=== PATIENT | female | born 1975 | race Caucasian/White ===

== ENCOUNTER 2017-05-19 08:11 | Emergency (ER) ==
[2017-05-19 08:27] VITALS: BP 119/82; TEMP 98.6; BMI 36.6
[2017-05-19] MEDS ORDERED: SODIUM CHLORIDE 1,000 ML IV STA ×2 (09:21→13:36)
[2017-05-19] MEDS ORDERED: ZOFRAN 4 MG/2 ML IVP PRN ×2 (09:23→13:39)
[2017-05-19] MEDS ORDERED: PEPCID IVP STA (09:25)
--- NOTE | 2017-05-19 09:28 | ED.PDOC ---
General ED Provider: Dr. RUBIA MORALES Chief Complaint: Nausea/Vomiting Stated Complaint: Nausea-Vomiting and Diarrhea. Onset Yesterday evening.State her 2 children has been ill with flu symptoms. Has had multiple episodes of vomiting(6-7) along with watery diarrhea. Unable to keep liquids down Time Seen by Physician: 08:25 Mode of Arrival: Walk-In Information Source: Patient Exam Limitations: No limitations Primary Care Provider: RUBIA BATISTA Nursing and Triage Documentation Reviewed and Agree: Yes Reviewed sepsis parameters & appropriate labs ordered?: Yes System Inflammatory Response Syndrome: Not Applicable Sepsis Protocol: For patient's 13 years and over: Temp is 96.8 and below OR 101 and greater Pulse >90 BPM Resp >20/minute Acutely Altered Mental Status Are patient's symptoms suggestive of a new infection, such as: -Pneumonia -Skin, Soft Tissue -Endocarditis -UTI -Bone, Joint Infection -Implantable Device -Acute Abdominal Infection -Wound Infection -Meningitis -Blood Stream Catheter Infection -Unknown System Inflammatory Response Syndrome: Not Applicable GI Complaint Exam - Vomiting/Diarrhea Complaint/Exam Symptoms Are: Still present Initial Severity: Moderate Current Severity: Moderate Character of Vomiting: Reports: Bilious Character of Diarrhea: Reports: Watery Aggravating: Reports: Liquids Alleviating: Reports: None Associated Signs and Symptoms: Reports: Abdominal pain Review of Systems - Review Of Systems Constitutional: Reports: Weakness, Loss of appetite. Denies: Chills Eyes: Reports: No symptoms Ears, Nose, Mouth, Throat: Reports: No symptoms Respiratory: Reports: No symptoms Cardiac: Reports: No symptoms GI: Reports: Abdominal pain, Diarrhea, Nausea, Poor appetite, Poor fluid intake , Vomiting. Denies: Rectal bleeding : Reports: No symptoms Musculoskeletal: Reports: No symptoms Skin: Reports: No symptoms Neurological: Reports: No symptoms Endocrine: Reports: No symptoms Hematologic/Lymphatic: Reports: No symptoms All Other Systems: Reviewed and Negative Past Medical History - Past Medical History Previously Healthy: No Endocrine: Reports: None Cardiovascular: Reports: None Respiratory: Reports: None Hematological: Reports: None Gastrointestinal: Reports: Other (Gastric by pass) Genitourinary: Reports: None Neuro/Psych: Reports: Depression, Other (stress) Musculoskeletal: Reports: None Cancer: Reports: None Last Menstrual Period: now - Surgical History General Surgical History: Reports: Gastric Bypass - Family History Family History: Reports: None - Social History Smoking Status: Never smoker Hx Substance Use: No Alcohol Screening: None Physical Exam - Physical Exam Appearance: Obese Ill-appearing: Moderate Pain Distress: Mild ENT: Ears normal Neck: Supple Respiratory: Airway patent, Breath sounds clear, Breath sounds equal Cardiovascular: RRR, Pulses normal, No rub, No murmur GI/: Soft, Nontender, No masses, Bowel sounds normal, Tender (Neg guarding or rebound) Musculoskeletal: Normal strength, ROM intact, No edema, No calf tenderness Skin: Warm, Dry, Normal color Neurological: Sensation intact, Motor intact, Reflexes intact, Cranial nerves intact Psychiatric: Affect appropriate, Mood appropriate, Anxious Re-Evaluation - Re-Evaluation Time of Re-Evaluation: 13:15 Status: Unchanged Vital Signs Stable: Yes Pain Level: 5/10 Appearance: NAD Lungs: Clear Skin: Warm and Dry Neuro: Alert and Oriented X3 CV: RRR Additional Comments: Will initiate IV fluids as patient intolerant of PO liquids / +3 KetonesUA - Re-Evaluation Time of Re-Evaluation: 15:45 Status: Improved Vital Signs Stable: Yes Appearance: NAD Skin: Warm and Dry Neuro: Alert and Oriented X3 CV: RRR Additional Comments: Feeling much better after IV fluids received/ready for discharge Critical Care Note - Critical Care Note Total Time (mins): 0 Course - Course Hematology/Chemistry: 05/19/17 09:40 05/19/17 09:40 Orders, Labs, Meds: Lab Review 05/19/17 05/19/17 05/19/17 09:40 09:40 12:02 WBC 14.06 H RBC 4.75 Hgb 14.7 Hct 42.5 MCV 89.5 MCH 30.9 MCHC 34.6 RDW Coeff of Shaylee 12.3 Plt Count 196 Immature Gran % (Auto) 0.4 Neut % (Auto) 91.6 Lymph % (Auto) 3.9 L [place] % (Auto) 3.9 Eos % (Auto) 0.1 Baso % (Auto) 0.1 Immature Gran # (Auto) 0.1 Neut # 12.9 H Lymph # 0.6 [place] # 0.6 Eos # 0.0 Baso # 0.0 Sodium 138 Potassium 3.8 Chloride 105 Carbon Dioxide 23 Anion Gap 13.8 BUN 13 Creatinine 0.75 Estimated GFR (MDRD) 85.00 BUN/Creatinine Ratio 17.33 Glucose 109 Calcium 8.8 Total Bilirubin 1.4 H AST 31 ALT 38 Alkaline Phosphatase 88 Total Protein 7.2 Albumin 3.8 Globulin 3.4 Albumin/Globulin Ratio 1.12 Urine Color Yellow Urine Clarity Slightly Urine pH 5.5 Ur Specific [place] >=1.030 Urine Protein 1+ Urine Glucose (UA) Negative Urine Ketones 3+ Urine Blood 3+ Urine Nitrite Negative Urine Bilirubin 1+ Urine Urobilinogen 0.2 Ur Leukocyte Esterase Negative Urine Microscopic RBC 2-5 Urine Microscopic WBC 0-2 Ur Squamous Epith Cells 5-10 Urine Bacteria 1+ Urine Mucus 2+ Orders Category Date Time Status IV ACCESS ONCE CARE 05/19/17 09:21 Active CBC W/ AUTO DIFF Stat LAB 05/19/17 09:40 Completed CMP [COMPREHENSIVE METABOLIC PANEL] Stat LAB 05/19/17 09:40 Completed RAPID STREP SCREEN [MOLECULAR GROUP A STREP] Stat LAB 05/19/17 09:32 Completed URINALYSIS C & S IF INDICATED Stat LAB 05/19/17 12:02 Completed URINE CULTURE Stat LAB 05/19/17 12:02 Received Famotidine Inj [Pepcid] MEDS 05/19/17 09:25 Discontinued 20 mg IVP ONCE STA Ondansetron HCl/Pf [Zofran 4 mg/2 ml] MEDS 05/19/17 09:23 Discontinued 4 mg IVP Q6H PRN Ondansetron HCl/Pf [Zofran 4 mg/2 ml] MEDS 05/19/17 13:39 Active 4 mg IVP Q6H PRN Sodium Chloride 0.9% [Sodium Chloride] 1,000 ml MEDS 05/19/17 13:36 Discontinued IV BOLUS Medications Generic Name Dose Route Start Last Admin Trade Name [place] PRN Reason Stop Dose Admin Ondansetron HCl 4 mg 05/19/17 13:39 05/19/17 14:08 Zofran 4 Mg/2 Ml IVP 4 mg Q6H PRN Administration Nause and vomiting Discontinued Medications Generic Name Dose Route Start Last Admin Trade Name Freq PRN Reason Stop Dose Admin Famotidine 20 mg 05/19/17 09:25 05/19/17 09:57 Pepcid IVP 05/19/17 09:26 20 mg ONCE STA Administration Sodium Chloride 1,000 mls @ 1,000 mls/hr 05/19/17 13:36 05/19/17 14:08 Sodium Chloride IV 05/19/17 14:35 1,000 mls/hr BOLUS STA Administration Ondansetron HCl 4 mg 05/19/17 09:23 05/19/17 09:55 Zofran 4 Mg/2 Ml IVP 4 mg Q6H PRN Administration Nause and vomiting Vital Signs: Temp Pulse Resp BP Pulse Ox 05/19/17 08:12 98.6 F 104 H 20 119/82 98 Departure - Departure Time of Disposition: 16:05 Disposition: TSF TO PSYCH HOSP/UNIT Discharge Problem: Gastroenteritis, Dehydration Instructions: Gastroenteritis (ED) Condition: Good Pt referred to PMD for follow-up: No IPMP verified?: No Additional Instructions: Take all meds as directed (hold Tizanadine) if using Zofran Take Zofran as needed for further nausea and vomiting Tylenol or Ibuprofen for temp elevation >101 deg F or pain Follow up PCP in next week Allergies/Adverse Reactions: Allergies acetaminophen [From Lortab] Adverse Reaction (Verified 05/19/17 08:24) NO ALLERGY, JUST DOESNT WORK hydrocodone [From Lortab] Adverse Reaction (Verified 05/19/17 08:24) NO ALLERGY, JUST DOESNT WORK latex Adverse Reaction (Verified 05/19/17 08:24) Rash morphine Adverse Reaction (Verified 05/19/17 08:24) NO ALLERGY, JUST DOESNT WORK Home Medications: Ambulatory Orders Acetaminophen [Acetaminophen Extra Strength] 1,000 mg PO BID 11/04/15 Cyanocobalamin (Vitamin B-12) [Vitamin B-12] 1,000 mcg SL TID 11/04/15 Fluoxetine HCl 20 mg PO BID 11/04/15 Bupropion HCl [Wellbutrin] 75 mg PO BID 05/19/17 Buspirone HCl 7.5 - 15 mg PO BID 05/19/17 Diclofenac Sodium [Voltaren] 100 gm TP QID PRN 05/19/17 Gabapentin [Neurontin] 600 mg PO QID 05/19/17 Omeprazole [Prilosec] 20 mg PO QDAC 05/19/17 Ondansetron [Zofran Odt] 4 mg PO Q8H #7 tab.rapdis 05/19/17 Tizanidine HCl 1 - 4 mg PO Q8HR PRN 05/19/17
== END 2017-05-19 16:18 ==
LOC: ED 08:11
DX: K52.9 Noninfective gastroenteritis and colitis, unspecified (principal); E86.0 Dehydration; Z98.84 Bariatric surgery status
CPT/HCPCS: 36415; 80053; 81001; 85025; 87086; 87651; 96361; 96374; 96375; 99283